=== PATIENT | female | born 2005 | race Caucasian/White ===

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

== ENCOUNTER 2024-07-02 13:32 | Outpatient (CLI) | payer OTHER, SELFPAY ==
--- NOTE | ~2024-07-02 | US_ITS ---
EXAMINATION: US pelvic complete DATE: 07/02/2024 13:50 INDICATION: Pelvic pain TECHNIQUE: Multiple transabdominal sonographic images of the pelvis were obtained. COMPARISON: None. FINDINGS: The uterus measures 6.3 x 3.6 x 4.9 cm. The endometrial complex measures 4 mm in thickness. Linear e chogenic and shadowing IUD in the endometrial canal. The right ovary measures 2.6 x 1.6 x 2.5 cm. The left ovary measures 3.0 x 1.6 x 2.6 cm. And 1.8 cm anechoic follicle in the left ovary vascular flow identified in both ovaries on color Doppler. There is no free fluid in the pelvis. IMPRESSION: 1. 1.8 cm left ovarian follicle and IUD in expected position within the endometrial canal. Reviewed, dictated and finalized at location A. MECHANIC IMPRESSION: 1. 1.8 cm left ovarian follicle and IUD in expected position within the endomet rial canal.
== END 2024-07-02 13:33 | disposition home or self-care (01) ==
LOC: MICIMG 13:32
PROVIDERS: PCP Family Medicine; Visit Provider Obstetrics & Gynecology Gynecology
DX: N83.02 Follicular cyst of left ovary (principal); R10.2 Pelvic and perineal pain
CPT/HCPCS: 76856